=== PATIENT | male | born 1970 | race Caucasian/White ===

== ENCOUNTER 2022-05-06 20:02 | Emergency (ER) | payer OTHER, SELFPAY ==
[2022-05-06] VITALS (17 sets, daily range): BP systolic 123–161; BP diastolic 76–97; PULSE 40–88; RESP 10–26; TEMP 36.7; O2SAT 96–100
--- NOTE | 2022-05-06 20:05 | DI.RAD.S_ITS ---
PROCEDURE: XR SHOULDER RT MIN 2V INDICATIONS: fall TECHNIQUE: 2 views of the shoulder were acquired. COMPARISON: None. FINDINGS: Bones: There is anterior dislocation of the right glenohumeral joint. Evaluation for a possible Hill-Sachs fracture is limited on the current study given overlying osseous structures. Visualized ribs appear intact. Soft tissues: No suspicious soft tissue calcifications. IMPRESSION: 1. Anterior dislocation of the right glenohumeral joint. Dictated by: Augustin Aguilar M.D. on 05/06/2022 at 21:02 Approved by: Augustin Aguilar M.D. on 05/06/2022 at 21:03
[2022-05-06] MEDS: SODIUM CHLORIDE 0.9% 1,000 ML 125 ML IV (20:48)
[2022-05-06] MEDS: HYDROMORPHONE 1 MG INJ IV (20:48)
--- NOTE | 2022-05-06 20:51 | ED.GENADULT ---
HPI - General Adult General Chief complaint: Extremity Injury, Upper Stated complaint: Rt shoulder dislocated Time Seen by Provider: 05/06/22 20:38 Source: patient Mode of arrival: Ambulatory Limitations: no limitations History of Present Illness HPI narrative: 51-year-old male here for evaluation for right shoulder injury. He is never dislocated this shoulder in the past. He states he was skateboarding and he fell down on an outstretched hand and felt his shoulder dislocate. He reports no other injuries from the event. Did not hit his head. There was no loss of conscious. His right wrist and right elbow are unremarkable. No interventions prior to arrival. Related Data Previous Rx's Medication Instructions Recorded benzonatate 100 mg capsule 100 mg PO BEDTIME #20 caps 05/11/19 Allergies Allergy/AdvReac Type Severity Reaction Status Date / Time No Known Drug Allergies Allergy Verified 05/11/19 11:19 Review of Systems Constitutional Constitutional: Reports system reviewed and no additional complaints, except as documented Musculoskeletal Musculoskeletal: Reports system reviewed and no additional complaints, except as documented and Reports as per HPI Integumentary/Breasts Skin/Breast: Reports system reviewed and no additional complaints, except as documented and Reports as per HPI Neurologic Neurologic: Reports system reviewed and no additional complaints, except as documented and Reports as per HPI Hematologic/Lymphatic On Anticoagulants: No Patient History Medical History Healthy adult Social History lives independently: Yes Exam Initial Vital Signs Initial Vital Signs: Vital Signs Temperature 98.1 F 05/06/22 20:06 Pulse Rate 60 05/06/22 20:06 Respiratory Rate 22 05/06/22 20:06 Blood Pressure 123/80 05/06/22 20:06 Pulse Oximetry 99 05/06/22 20:06 Oxygen Delivery Method 05/06/22 20:06 HENAL Head: normal to inspection and normocephalic Cardio Pulses: radial pulses present on the right Skin General: no rashes or lesions noted Neuro Sensory Exam: no sensory deficits noted Other: Sensory intact over the right deltoid Extrem Other: His right wrist and right elbow are unremarkable. He is an obvious deformity and discomfort with any palpation or movement of his right shoulder. Procedures Orthopedic Joint Reduction Joint #1: Time Out Performed: Yes Side: right Joint Reduction Location: shoulder Analgesia: procedural sedation Shoulder Technique Used (if applicable): Milch Post-reduction neuro exam: intact Post-reduction vascular: intact Post Reduction X-Ray Obtained: Yes Post Reduction X-Ray Results: reduced Splint Applied: Yes Patient Tolerated Procedure: Well and No complications Orthopedic Splinting/Casting Injury #1: Side: right Upper Extremity Injury Location: shoulder Upper Extremity Immobilizer: sling/shoulder immobilizer Post splinting neuro exam: intact Post splinting vascular exam: intact Placed by: Nursing Procedural Sedation Consent signed: Yes Time out performed: Yes Indication: fracture/dislocation reduction ASA Class: I Mallampati Airway Classification: Class I Preparation: cardiac rehabilitation specialist applied, pulse oximeter, capnometry used, supplemental O2 applied, suction/airway equipment at bedside and IV secured IV Propofol dose (mg): 170 Intraservice time/total sedation time (min): 12 ED Sedation Level: Moderate (Concious) Patient Tolerated Procedure: Well and No complications Complications: none Course Orders Ordered: ED Orders 05/06/22 20:05 XR shoulder RT min 2V Stat 05/06/22 21:27 XR shoulder RT min 2V Stat Discontinued Medications Hydromorphone HCl (Hydromorphone 1 Mg Inj) 1 mg IV NOW ONE Stop: 05/06/22 20:39 Last Admin: 05/06/22 20:48 Dose: 1 mg Documented By: ANEESH Sodium Chloride (Normal Saline 0.9%) 1,000 mls @ 125 mls/hr IV CONT LUTHER Last Infusion: 05/06/22 22:39 Dose: 0 mls/hr Documented By: Admin: 05/06/22 20:48 Dose: 125 mls/hr Documented By: ANEESH Propofol (Propofol 200 Mg/20 Ml Vial) 100 mg IV NOW ONE Stop: 05/06/22 20:54 Last Admin: 05/06/22 21:52 Dose: 100 mg Documented By: ANEESH Propofol (Propofol 200 Mg/20 Ml Vial) 70 mg IV NOW ONE Stop: 05/06/22 21:31 Last Admin: 05/06/22 21:53 Dose: 70 mg Documented By: ANEESH Vital Signs Vital signs: Vital Signs - 8 hr 05/06/22 20:06 05/06/22 21:10 05/06/22 21:21 Temperature 98.1 F Pulse Rate 60 56 L 63 Respiratory Rate 22 11 L 13 Blood Pressure 123/80 130/76 140/90 Pulse Oximetry 99 100 96 Oxygen Delivery Method Room Air Oxygen Flow Rate 2 05/06/22 21:25 05/06/22 21:26 05/06/22 21:31 Temperature Pulse Rate 61 68 40 L Respiratory Rate 10 L 19 19 Blood Pressure 138/91 H 148/90 H 140/88 Pulse Oximetry 96 98 98 Oxygen Delivery Method Oxygen Flow Rate 4 4 2 05/06/22 21:14 05/06/22 21:50 05/06/22 21:55 Temperature Pulse Rate 51 L 71 Respiratory Rate 17 20 Blood Pressure 130/79 160/86 H Pulse Oximetry 100 100 Oxygen Delivery Method Oxygen Flow Rate 05/06/22 21:55 05/06/22 22:00 05/06/22 22:00 Temperature Pulse Rate 65 67 Respiratory Rate 21 24 Blood Pressure 152/93 H Pulse Oximetry 100 100 Oxygen Delivery Method Oxygen Flow Rate 05/06/22 22:05 05/06/22 22:05 05/06/22 22:10 Temperature Pulse Rate 65 67 Respiratory Rate 14 18 Blood Pressure 155/94 H Pulse Oximetry 100 100 Oxygen Delivery Method Oxygen Flow Rate 05/06/22 22:10 05/06/22 22:16 05/06/22 22:20 Temperature Pulse Rate 88 72 Respiratory Rate 26 H 19 Blood Pressure 156/93 H Pulse Oximetry 99 100 Oxygen Delivery Method Oxygen Flow Rate 05/06/22 22:20 05/06/22 22:25 05/06/22 22:25 Temperature Pulse Rate 76 Respiratory Rate 23 Blood Pressure 160/96 H 159/97 H Pulse Oximetry 100 Oxygen Delivery Method Oxygen Flow Rate 05/06/22 22:30 05/06/22 22:30 05/06/22 22:35 Temperature Pulse Rate 72 Respiratory Rate 21 Blood Pressure 158/87 H 161/92 H Pulse Oximetry 99 Oxygen Delivery Method Oxygen Flow Rate 05/06/22 22:35 Temperature Pulse Rate 68 Respiratory Rate 23 Blood Pressure Pulse Oximetry 100 Oxygen Delivery Method Oxygen Flow Rate Medical Decision Making Imaging Data Extremity x-ray #1: Radiologist's Impression: [address] [address] XRay Report Signed Patient: Darryl Almonte MR#: [id number] : 1970 Acct:[id number] Age/Sex: 51 / M Date of Service: 05/06/22 Loc: ED Accession Number: [id number] ?? Procedure: XR shoulder RT min 2V Ordering Provider: Sebastien Rainey D.O. PROCEDURE:? XR SHOULDER RT MIN 2V ? INDICATIONS:? fall ? TECHNIQUE:? 2 views of the shoulder were acquired.? ? COMPARISON:? None. ? FINDINGS:? ? Bones:? There is anterior dislocation of the right glenohumeral joint.? Evaluation for a possible Hill-Sachs fracture is limited on the current study given overlying osseous structures.? Visualized ribs appear intact.? ? Soft tissues:? No suspicious soft tissue calcifications.? ? IMPRESSION:? ? 1. Anterior dislocation of the right glenohumeral joint. ? ? Dictated by: Augustin Aguilar M.D. on 05/06/2022 at 21:02 ? ? Approved by: Augustin Aguilar M.D. on 05/06/2022 at 21:03? Extremity x-ray #2: Radiologist's Impression: [place] [address] XRay Report Signed Patient: Darryl Almonte MR#: [id number] : 1970 Acct:[id number] Age/Sex: 51 / M Date of Service: 05/06/22 Loc: ED Accession Number: [id number] ?? Procedure: XR shoulder RT min 2V Ordering Provider: Sebastein Rainey D.O. PROCEDURE:? XR SHOULDER RT MIN 2V ? INDICATIONS:? post reduction ? TECHNIQUE:? 2 views of the shoulder were acquired.? ? COMPARISON:? [facility], , XR SHOULDER RT MIN 2V, 05/06/2022, 20:24. ? FINDINGS:? ? Bones:? There is interval reduction of the previously visualized glenohumeral joint dislocation.? No definite fracture identified on the current study.? No suspicious bony lesions.? Visualized ribs appear intact.? ? Soft tissues:? No suspicious soft tissue calcifications.? ? IMPRESSION:? ? 1. Interval reduction of the previously visualized glenohumeral joint dislocation. ? ? Dictated by: Augustin Aguilar M.D. on 05/06/2022 at 22:17 ? ? Approved by: Augustin Aguilar M.D. on 05/06/2022 at 22:19?? MDM Narrative Medical decision making narrative: X-ray show right shoulder dislocation. Consent signed and patient is sedated and right shoulder dislocation reduced without incident. Post reduction x-ray shows no fractures. Patient feels much better afterwards. Tolerated the procedure well. [place] so he was given a copy of his x-rays on a CD was instructed that when he returns home he needs to follow-up with his primary doctor and an orthopedic provider. He was given return precautions. He expressed understanding and agreement. Discharge Plan Departure Patient Disposition: Home Clinical Impression: Anterior shoulder dislocation Instructions: How to Use a Sling, DI for Shoulder Dislocation Activity Restrictions/Additional Instructions: The sling is for your comfort. I suspect that over the next couple days you will be able to spend more time out of the sling as the discomfort will improve. You do need to avoid the positions that we discussed. It is important that you have follow-up with your primary doctor as you are going to need follow-up with physical therapy. Return to the emergency department for any new or worsening symptoms. Prescriptions: No Action benzonatate 100 mg capsule 100 mg PO BEDTIME Qty: 20 0RF Visit Report Forms: Patient Portal/API
--- NOTE | 2022-05-06 21:27 | DI.RAD.S_ITS ---
PROCEDURE: XR SHOULDER RT MIN 2V INDICATIONS: post reduction TECHNIQUE: 2 views of the shoulder were acquired. COMPARISON: [facility], CR, XR SHOULDER RT MIN 2V, 05/06/2022, 20:24. FINDINGS: Bones: There is interval reduction of the previously visualized glenohumeral joint dislocation. No definite fracture identified on the current study. No suspicious bony lesions. Visualized ribs appear intact. Soft tissues: No suspicious soft tissue calcifications. IMPRESSION: 1. Interval reduction of the previously visualized glenohumeral joint dislocation. Dictated by: Augustin Aguilar M.D. on 05/06/2022 at 22:17 Approved by: Augsutin Aguilar M.D. on 05/06/2022 at 22:19
[2022-05-06] MEDS: propofoL 200 MG/20 ML VIAL 100 MG IV (21:52)
[2022-05-06] MEDS: propofoL 200 MG/20 ML VIAL 70 MG IV (21:53)
== END 2022-05-06 22:40 | disposition home or self-care (01) ==
PROVIDERS: Emergency Provider Emergency Medicine
DX: S43.014A Anterior dislocation of right humerus, initial encounter (principal); V00.131A Fall from skateboard, initial encounter
CPT/HCPCS: 23650; 73030; 96361; 96374; 99152; 99284; J1170; J2704

== ENCOUNTER → 2025-01-09 10:49 | Outpatient (CLI) | payer OTHER, SELFPAY ==
[2025-01-09 11:36] LABS: Influenza A - CEPHEID Flu A NEGATIVE (NEGATIVE); Influenza B - CEPHEID Flu B POSITIVE (NEGATIVE); Respiratory Syncytial Virus Negative (Negative)
[2025-01-09 11:37] LABS: COVID-19 CEPHEID 4-PLEX PCR Negative (Negative)
== END ==
PROVIDERS: Visit Provider Nurse Practitioner Family
DX: R05.1 Acute cough (principal)
CPT/HCPCS: 0241U

== ENCOUNTER → 2025-01-09 11:18 | Outpatient (CLI) | payer OTHER, SELFPAY ==
--- NOTE | 2025-01-09 11:20 | DI.RAD.S_ITS ---
PROCEDURE: XR CHEST 2V INDICATIONS: cough TECHNIQUE: 2 views of the chest were acquired. COMPARISON: None. FINDINGS: Mild bilateral perihilar and lower lobe peribronchial thickening with mild patchy lower lobe opacities more than expected for expiratory result and bronchitis, bronchopneumonia, viral infection, asthma or other process should be considered. No pneumothorax, no pleural effusion, no focal consolidation. Mild degenerative changes of the thoracic spine. Cardiopericardial silhouette and pulmonary vasculature within normal limits. IMPRESSION: Mild bilateral peribronchial thickening with mild patchy lower lobe opacities as discussed above. Follow-up suggested. If symptoms persist or worsen, CT chest could be performed. Dictated by: Robert Wong M.D. on 01/09/2025 at 15:24 Approved by: Robert Wong M.D. on 01/09/2025 at 15:26
== END ==
PROVIDERS: Referring Provider Nurse Practitioner Family; Visit Provider Nurse Practitioner Family
DX: R05.1 Acute cough (principal)
CPT/HCPCS: 0241U; 71046